=== PATIENT | female | born 1980 | race Two or more races ===

== ENCOUNTER 2021-02-22 20:41 | Emergency (ER) | payer OTHER ==
[~2021-02-22] VITALS: Ht 170.2 cm; Wt 56.7 kg
== END 2021-02-22 22:13 | disposition home or self-care (01) ==
LOC: ER 20:41
DX: S50.312A Abrasion of left elbow, initial encounter (principal); S50.311A Abrasion of right elbow, initial encounter; W54.0XXA Bitten by dog, initial encounter; Y93.89 Activity, other specified; Y92.89 Other specified places as the place of occurrence of the external cause; Y99.8 Other external cause status